=== PATIENT | male | born 1965 | race Two or more races ===

== ENCOUNTER 2021-01-16 01:07 | Emergency (ER) | payer SELFPAY ==
[~2021-01-16] VITALS: Ht 165.1 cm; Wt 78.0 kg
--- NOTE | 2021-01-16 01:40 | NUR ---
GE FROM [facility] C/O ETOH. PLACED IN BED 13 ON MONITOR AND PULSE. ER MD AT BEDSIDE FOR EVAL. AWAITING ORDERS.
[2021-01-16 05:15] VITALS: BP 130/71
--- NOTE | 2021-01-16 05:15 | NUR ---
Patient discharged to home in stable condition. Written and verbal after care instructions given. Patient verbalizes understanding of instruction.
== END 2021-01-16 05:15 | disposition home or self-care (01) ==
LOC: ER 01:07 → EDBD 01:07 → ER 05:15
DX: F10.129 Alcohol abuse with intoxication, unspecified (principal); Y90.9 Presence of alcohol in blood, level not specified
CPT/HCPCS: 82962-TC